=== PATIENT | male | born 1940 | race Caucasian/White ===

== ENCOUNTER 2019-04-16 07:56 | Day surgery (SDC) | payer MEDICARE, OTHER ==
[2019-04-16] MEDS ORDERED: Lactated Ringers 1,000 ML IV SCH (08:00)
[2019-04-16] MEDS ORDERED: Sodium Chloride 0.9% 10 ML Syringe FLUSH PRN (08:00)
[2019-04-16] MEDS ORDERED: Propofol 200 MG/20 ML SDV ONE ×3 (08:24→09:13)
--- NOTE | 2019-04-16 09:15 | PCM.HPR ---
H & P Addendum review - H & P Addendum Review Date of Original H & P: 04/06/19 Date Reviewed: 04/16/19 Time Reviewed: 09:05 Patient was Examined: No Changes
--- NOTE | 2019-04-16 09:39 | PCM.OPNOTE ---
- General Post-Op/Procedure Note Date of Surgery/Procedure: 04/16/19 Operative Procedure(s): Colonoscopy Findings: Sig Tics Pre Op Diagnosis: Screening Post-Op Diagnosis: Same Anesthesia Technique: MAC Primary Surgeon: Myles More Anesthesia Provider: Ana Paual Voss Complications: None Condition: Good
--- NOTE | 2019-04-17 08:51 | OR ---
Date of Procedure: 04/16/2019 PREOPERATIVE DIAGNOSIS: Colon screening. POSTOPERATIVE DIAGNOSIS: Sigmoid diverticulosis. PROCEDURE: Colonoscopy. ANESTHESIA: IV sedation. DESCRIPTION OF PROCEDURE: The patient was brought to the procedure room where he was placed on his left side and IV sedation administered. Digital rectal exam was performed which was normal. Colonoscope was inserted and advanced to the level of the cecum without difficulty. Cecal position was confirmed by identifying the appendiceal lumen and ileocecal valve. Prep was fair with some thick stool remaining, mostly on the left side. Surfaces were adequately visualized to identify any large polyps or tumors. Upon withdrawing the scope, the ascending, transverse, and descending colon were normal in appearance. Sigmoid colon had multiple diverticula present. Rectum was normal and retroflexion was normal. Air was removed and the scope withdrawn. The patient tolerated the procedure well and returned to recovery in stable condition. No further colon screenings are necessary due to the patient's age. JOSE FRANCISCO DUARTE MD /[id number]
== END 2019-04-16 10:50 | disposition home or self-care (01) ==
LOC: LL.SDS 07:56
PROVIDERS: ATTEND Surgery
DX: Z12.11 Encounter for screening for malignant neoplasm of colon (principal); K57.30 Diverticulosis of large intestine without perforation or abscess without bleeding; I87.2 Venous insufficiency (chronic) (peripheral); R25.1 Tremor, unspecified; H61.23 Impacted cerumen, bilateral; I12.9 Hypertensive chronic kidney disease with stage 1 through stage 4 chronic kidney disease, or unspecified chronic kidney disease; N18.3 Chronic kidney disease, stage 3 (moderate); N40.1 Benign prostatic hyperplasia with lower urinary tract symptoms; R35.0 Frequency of micturition; E78.2 Mixed hyperlipidemia; E55.9 Vitamin D deficiency, unspecified; E66.01 Morbid (severe) obesity due to excess calories; Z68.41 Body mass index [BMI] 40.0-44.9, adult; Z79.82 Long term (current) use of aspirin; Z79.899 Other long term (current) drug therapy
CPT/HCPCS: 00812; J2704; J7120

== ENCOUNTER 2019-10-20 09:29 | Emergency (ER) | payer MEDICARE, OTHER ==
--- NOTE | 2019-10-20 10:32 | EDM.PDOC ---
ED HPI GENERAL MEDICAL PROBLEM - General Chief Complaint: General Stated Complaint: shortness of breath Time Seen by Provider: 10/20/19 09:45 Source of Information: Reports: Patient, Significant Other History Limitations: Reports: No Limitations - History of Present Illness INITIAL COMMENTS - FREE TEXT/NARRATIVE: 3 day history of increased SOB. Intermittent chest discomfort/pain. Recent right rotator cuff repair almost a month ago. Denies cough/cold/URI symptoms. No fevers/chills. Decreased appetite. No obvious weight changes but feels a bit puffier in the lower legs. Denies history of CAD/CHF/COPD. Has chronic peripheral edema, worse on left than right. No other acute changes reported. No previous diagnosis of lung disease. Treatments IT TRAINER: Reports: Oxygen - Related Data Allergies Allergy/AdvReac Type Severity Reaction Status Date / Time No Known Allergies Allergy Verified 10/20/19 09:31 Home Meds: Home Meds Cholecalciferol (Vitamin D3) [Vitamin D3] 2,000 unit PO DAILY 04/15/19 [History] Cyanocobalamin (Vitamin B-12) [B-12] 1,000 mcg PO DAILY 04/15/19 [History] Folic Acid 0.4 mg PO DAILY 04/15/19 [History] Furosemide 40 mg PO DAILY 04/15/19 [History] Lisinopril 10 mg PO DAILY 04/15/19 [History] Lovastatin [Mevacor] 20 mg PO BEDTIME 04/15/19 [History] Magnesium Oxide 250 mg PO DAILY 04/15/19 [History] Terazosin [Hytrin] 2 mg PO BEDTIME 04/15/19 [History] Tamsulosin HCl 0.4 mg PO DAILY 10/20/19 [History] Past Medical History HEENT History: Reports: Cataract Cardiovascular History: Reports: High Cholesterol, Hypertension, Other (See Below) Other Cardiovascular History: BLE venous insufficiency Gastrointestinal History: Reports: Diverticulosis Genitourinary History: Reports: BPH, Chronic Renal Insuffiency, Renal Calculus, Other (See Below) Other Genitourinary History: Overactive bladder; Erectile dysfunction Musculoskeletal History: Reports: Arthritis, Other (See Below) Other Musculoskeletal History: Degenerative disc disease; lumbar disc herniation Neurological History: Reports: Neuropathy, Peripheral, Vertigo Psychiatric History: Reports: Depression Endocrine/Metabolic History: Reports: Obesity/BMI 30+ Hematologic History: Reports: B12 Deficiency, Folic Acid, Other (See Below) Other Hematologic History: Hyperhomocysteinemia - Past Surgical History HEENT Surgical History: Reports: Cataract Surgery, Tonsillectomy Respiratory Surgical History: Reports: Other (See Below) Other Respiratory Surgeries/Procedures: Removal of scar tissue in lung in 1976 GI Surgical History: Reports: Colonoscopy Male Surgical History: Reports: TURP-Transurethral Resection of Prostate, Other (See Below) Other Male Surgeries/Procedures: Left inguinal hernia repair Musculoskeletal Surgical History: Reports: Arthroscopic Procedure Social & Family History - Family History Family Medical History: Noncontributory - Tobacco Use Smoking Status *Q: Former Smoker - Caffeine Use Caffeine Use: Reports: Soda - Alcohol Use Alcohol Use History: Yes Alcohol Use in Last Twelve Months: Yes Alcohol Use Frequency: Socially (Occasional use) - Recreational Drug Use Recreational Drug Use: No Drug Use in Last 12 Months: No ED ROS GENERAL - Review of Systems Review Of Systems: See Below Constitutional: Reports: Decreased Appetite. Denies: Fever, Chills, Malaise, Weakness, Fatigue, Night Sweats, Diaphoresis HEENT: Reports: No Symptoms (no acute changes) Respiratory: Reports: Shortness of Breath, Cough (has chronic nonproductive cough, no acute changes). Denies: Wheezing, Pleuritic Chest Pain, Sputum, Hemoptysis Cardiovascular: Reports: Chest Pain, Dyspnea on Exertion, Edema, Orthopnea. Denies: Lightheadedness, Palpitations, Syncope GI/Abdominal: Reports: No Symptoms : Reports: Other (BPH/no acute changes) Musculoskeletal: Reports: Other (No acute changes from baseline) Skin: Reports: No Symptoms Neurological: Reports: Numbness (chronic), Difficulty Walking (chronic/unchanged ), Gait Disturbance (due to peripheral neuropathy/chronic). Denies: Confusion, Dizziness, Headache, Syncope, Change in Speech Psychiatric: Reports: No Symptoms ED EXAM, GENERAL - Physical Exam Exam: See Below Exam Limited By: No Limitations General Appearance: Alert, WD/WN, No Apparent Distress Eye Exam: Bilateral Eye: EOMI, PERRL Ears: Hearing Grossly Normal Nose: No: Nasal Deformity, Nasal Swelling, Nasal Drainage Throat/Mouth: Normal Lips, Normal Voice, No Airway Compromise Head: Atraumatic, Normocephalic Neck: Normal Inspection, Supple, Non-Tender, Full Range of Motion Respiratory/Chest: Lungs Clear, Decreased Breath Sounds (throughout), Other ( Mild increased breathing effort observed). No: Crackles, Rales, Rhonchi, Wheezing, Stridor, Pleural Rub, Retractions Cardiovascular: Regular Rate, Rhythm, No Murmur Peripheral Pulses: 2+: Radial (L), Radial (R) GI/Abdominal: Normal Bowel Sounds, Soft, Non-Tender, Other (obese) (Male) Exam: Deferred Rectal (Males) Exam: Deferred Back Exam: No: CVA Tenderness (L), CVA Tenderness (R), Muscle Spasm Extremities: Non-Tender, Pedal Edema (bilaterally, left greater than right). No : Kyree's Sign, Increased Warmth, Mottled, Pallor, Redness Neurological: Alert, Oriented, Normal Cognition, Other (equal tone/strength bilateral) Psychiatric: Normal Affect, Normal Mood Skin Exam: Warm, Dry, Intact, Normal Color EKG INTERPRETATION EKG Date: 10/20/19 Time: 10:27 Rhythm: NSR Rate (Beats/Min): 95 [place]: Normal P-Wave: Present QRS: Other (low voltage) ST-T: Other (No obvious ischemic changes, however Twave morphology V1-3 unusual. ) QT: Prolonged EKG Interpretation Comments: No previous EKG for comparison purposes available. Course - Vital Signs Last Recorded V/S: Last Vital Signs Temp 36.1 C 10/20/19 09:31 Pulse 94 10/20/19 10:40 Resp 24 H 10/20/19 10:40 BP 135/74 10/20/19 10:40 Pulse Ox 96 10/20/19 10:40 - Orders/Labs/Meds Orders: Active Orders 24 hr Category Date Time Status EKG Documentation Completion [RC] ASDIRECTED Care 10/20/19 10:21 Active RT Aerosol Therapy [RC] ASDIRECTED Care 10/20/19 11:41 Active Chest 2V [CR] Stat Exams 10/20/19 09:47 Taken PE Chest [Ang Chest] [CT] Stat Exams 10/20/19 11:17 Taken UA W/MICROSCOPIC [URIN] Stat Lab 10/20/19 09:46 Ordered Sodium Chloride 0.9% [Normal Saline] 1,000 ml Med 10/20/19 11:17 Active IV .BOLUS Medication Orders Sodium Chloride (Normal Saline) 1,000 mls @ 125 mls/hr IV .BOLUS ONE Stop: 10/20/19 19:16 Last Admin: 10/20/19 12:50 Dose: 125 mls/hr Labs: Laboratory Tests 10/20/19 10/20/19 10/20/19 Range/Units 10:25 10:25 10:25 WBC 14.4 H (4.0-10.2) K/uL RBC 5.41 (4.33-5.41) M/uL Hgb 15.6 (13.1-16.8) g/dL Hct 47.0 (39.0-49.0) % MCV 86.9 (84.0-98.0) fL MCH 28.8 (28.2-33.3) pg MCHC 33.2 (31.7-36.0) g/dL RDW 13.5 (11.2-14.1) % Plt Count 280 (150-350) K/uL Neut % (Auto) 84.5 H (45.0-80.0) % Lymph % (Auto) 8.1 L (10.0-50.0) % [place]oard % (Auto) 7.2 (2.0-14.0) % Eos % (Auto) 0.1 (0.0-5.0) % Baso % (Auto) 0.1 (0.0-2.0) % Neut # (Auto) 12.12 H (1.40-7.00) K/uL Lymph # (Auto) 1.16 (0.50-3.50) K/uL Foard # (Auto) 1.04 H (0.00-1.00) K/uL Eos # (Auto) 0.01 (0.00-0.50) K/uL Baso # (Auto) 0.02 (0.00-0.20) K/uL D-Dimer, Quantitative 3890 H (0-400) ng/mL Sodium 143 (136-145) mmol/L Potassium 4.3 (3.5-5.1) mmol/L Chloride 108 H (98-107) mmol/L Carbon Dioxide 21.5 (21.0-32.0) mmol/L BUN 33 H (7-18) mg/dL Creatinine 1.82 H (0.51-1.17) mg/dL Est Cr Clr Drug Dosing 36.75 mL/min Estimated GFR (MDRD) 36 mL/min Glucose 158 H (74-106) mg/dL Calcium 10.4 H (8.5-10.1) mg/dL Magnesium (1.8-2.4) mg/dL Total Bilirubin 0.8 (0.2-1.0) mg/dL AST 27 (15-37) U/L ALT 43 (12-78) U/L Alkaline Phosphatase 106 (46-116) IU/L NT-Pro-B Natriuret Pep (0-125) pg/mL Total Protein 7.3 (6.4-8.2) g/dL Albumin 3.2 L (3.4-5.0) g/dL 10/20/19 Range/Units 10:25 WBC (4.0-10.2) K/uL RBC (4.33-5.41) M/uL Hgb (13.1-16.8) g/dL Hct (39.0-49.0) % MCV (84.0-98.0) fL MCH (28.2-33.3) pg MCHC (31.7-36.0) g/dL RDW (11.2-14.1) % Plt Count (150-350) K/uL Neut % (Auto) (45.0-80.0) % Lymph % (Auto) (10.0-50.0) % [place]oard % (Auto) (2.0-14.0) % Eos % (Auto) (0.0-5.0) % Baso % (Auto) (0.0-2.0) % Neut # (Auto) (1.40-7.00) K/uL Lymph # (Auto) (0.50-3.50) K/uL Foard # (Auto) (0.00-1.00) K/uL Eos # (Auto) (0.00-0.50) K/uL Baso # (Auto) (0.00-0.20) K/uL D-Dimer, Quantitative (0-400) ng/mL Sodium (136-145) mmol/L Potassium (3.5-5.1) mmol/L Chloride (98-107) mmol/L Carbon Dioxide (21.0-32.0) mmol/L BUN (7-18) mg/dL Creatinine (0.51-1.17) mg/dL Est Cr Clr Drug Dosing mL/min Estimated GFR (MDRD) mL/min Glucose (74-106) mg/dL Calcium (8.5-10.1) mg/dL Magnesium 2.4 (1.8-2.4) mg/dL Total Bilirubin (0.2-1.0) mg/dL AST (15-37) U/L ALT (12-78) U/L Alkaline Phosphatase (46-116) IU/L NT-Pro-B Natriuret Pep 71966 H (0-125) pg/mL Total Protein (6.4-8.2) g/dL Albumin (3.4-5.0) g/dL Meds: Medications Generic Name Dose Route Start Last Admin Trade Name Freq PRN Reason Stop Dose Admin Sodium Chloride 1,000 mls @ 125 mls/hr 10/20/19 11:17 10/20/19 12:50 Normal Saline IV 10/20/19 19:16 125 mls/hr .BOLUS ONE Administration Discontinued Medications Generic Name Dose Route Start Last Admin Trade Name Freq PRN Reason Stop Dose Admin Albuterol/Ipratropium 3 ml 10/20/19 11:41 10/20/19 12:50 Duoneb 3.0-0.5 Mg/3 Ml NEB 10/20/19 11:42 3 ml ONETIME ONE Administration Furosemide 40 mg 10/20/19 10:37 10/20/19 12:29 Lasix PO 10/20/19 10:38 Not Given ONETIME ONE Iopamidol 80 ml 10/20/19 11:21 10/20/19 12:43 Isovue-370 (76%) IVPUSH 10/20/19 11:22 80 ml ONETIME ONE Administration - Radiology Interpretation Free Text/Narrative:: Chest xray: no obvious acute changes per Radiology CT Results Date: 10/20/19 CT Results Time: 13:25 (Bilateral PEs, suspected right heart strain) - Re-Assessments/Exams Free Text/Narrative Re-Assessment/Exam: Labs/EKG performed. No obvious ischemic changes on EKG but somewhat unusual morphology S-T anterior leads. DDimer and BNP significantly elevated. WBC elevated. Renal insufficiency. Call placed to [facility] and we were given OK to scan for PE (patient desired scan when told of lab elevation) using reduced amount of contrast. 10/20/19 14:13 Prolonged time until able to obtain CT study due to difficulty establishing a large enough IV for the study. Study obtained. Radiology review confirmed large PEs bilaterally. Consulted with , hospitalist from [place] who accepted patient for transfer. IV Heparin bolus dosed at 7500 given patient 's obesity. IV rate of 1000u/hr after bolus. Transferred to [place] once bed confirmation obtained. Patient remained stable throughout stay. Departure - Departure Time of Disposition: 14:17 Disposition: DC/Tfer to [facility] 02 Condition: Fair Clinical Impression: PE, Pulmonary embolism, Renal insufficiency CHF (congestive heart failure) Qualifiers: Heart failure type: unspecified Heart failure chronicity: unspecified Qualified Code(s): I50.9 - Heart failure, unspecified - Discharge Information *PRESCRIPTION DRUG MONITORING PROGRAM REVIEWED*: Not Applicable *COPY OF PRESCRIPTION DRUG MONITORING REPORT IN PATIENT STEFANO: Not Applicable Referrals: Ayleen Cardenas PA-C [Primary Care Provider] - Forms: ED Department Discharge - My Orders Last 24 Hours: My Active Orders 10/20/19 09:46 UA W/MICROSCOPIC [URIN] Stat 10/20/19 09:47 Chest 2V [CR] Stat 10/20/19 10:21 EKG Documentation Completion [RC] ASDIRECTED 10/20/19 11:17 PE Chest [Ang Chest] [CT] Stat Sodium Chloride 0.9% [Normal Saline] 1,000 ml IV .BOLUS 10/20/19 11:41 RT Aerosol Therapy [RC] ASDIRECTED - Assessment/Plan Last 24 Hours: My Active Orders 10/20/19 09:46 UA W/MICROSCOPIC [URIN] Stat 10/20/19 09:47 Chest 2V [CR] Stat 10/20/19 10:21 EKG Documentation Completion [RC] ASDIRECTED 10/20/19 11:17 PE Chest [Ang Chest] [CT] Stat Sodium Chloride 0.9% [Normal Saline] 1,000 ml IV .BOLUS 10/20/19 11:41 RT Aerosol Therapy [RC] ASDIRECTED
[2019-10-20] MEDS: Furosemide 40 MG Tab PO ONE (12:29)
[2019-10-20] MEDS: Iopamidol 755 Mg/ML 100 ML Bottle IVPUSH ONE (12:43)
[2019-10-20] MEDS: Albuterol/Ipratropium 3.0-0.5 MG/3 ML Neb Soln NEB ONE (12:50)
[2019-10-20] MEDS: Sodium Chloride 0.9% 1,000 ML IV ONE (12:50)
[2019-10-20] MEDS: Heparin Sodium 5,000 Units/ML Vial IVPUSH ONE (14:05)
[2019-10-20] MEDS: Heparin Sodium/D5W 25,000 UNITS/500 ML BAG IV SCH (14:07)
== END 2019-10-20 15:05 ==
LOC: LL.ED 09:29
DX: I13.0 Hypertensive heart and chronic kidney disease with heart failure and stage 1 through stage 4 chronic kidney disease, or unspecified chronic kidney disease (principal); N18.9 Chronic kidney disease, unspecified; I50.9 Heart failure, unspecified; I26.99 Other pulmonary embolism without acute cor pulmonale; N40.0 Benign prostatic hyperplasia without lower urinary tract symptoms; E78.00 Pure hypercholesterolemia, unspecified; M19.90 Unspecified osteoarthritis, unspecified site; E66.9 Obesity, unspecified; Z68.39 Body mass index [BMI] 39.0-39.9, adult; Z87.891 Personal history of nicotine dependence
CPT/HCPCS: 36415; 71046; 71275; 80053; 81001; 83735; 83880; 85025; 85379; 93005; 96361; 96365; 96376; 99285-25; J1644; J7030; J7620-GY; Q9967

== ENCOUNTER 2023-02-21 14:44 | Emergency (ER) | payer MEDICARE, OTHER | END 2023-02-21 16:40 | disposition home or self-care (01) | LOC: LL.ED 14:44 | DX: S99.912A Unspecified injury of left ankle, initial encounter (principal); I13.0 Hypertensive heart and chronic kidney disease with heart failure and stage 1 through stage 4 chronic kidney disease, or unspecified chronic kidney disease; N18.9 Chronic kidney disease, unspecified; I50.9 Heart failure, unspecified; E78.00 Pure hypercholesterolemia, unspecified; E66.9 Obesity, unspecified; Z68.39 Body mass index [BMI] 39.0-39.9, adult; Z79.899 Other long term (current) drug therapy; W00.0XXA Fall on same level due to ice and snow, initial encounter | CPT/HCPCS: 73610-LT; 99283 ==